=== PATIENT | male | born 1950 | race Caucasian/White ===

== ENCOUNTER 2018-03-31 08:00 | Emergency (ER) | payer MEDICARE ==
[2018-03-31] MEDS ORDERED: Aspirin 81 MG Tab.Chew PO ONE (08:26)
[2018-03-31] MEDS ORDERED: Nitroglycerin 0.4 MG Tab.SL SL ONE (08:27)
[2018-03-31] MEDS ORDERED: Sodium Chloride 0.9% 1,000 ML IV SCH (09:00)
[2018-03-31] MEDS ORDERED: Morphine 2 MG/ML Syringe IVPUSH ONE (09:14)
[2018-03-31] MEDS ORDERED: Clopidogrel 75 MG Tab PO ONE (09:20)
[2018-03-31] MEDS ORDERED: Heparin Sodium/D5W 25,000 UNITS/500 ML BAG IV SCH (09:30)
[2018-03-31] MEDS ORDERED: Nitroglycerin/D5W 25 MG/250 ML BOTTLE IV SCH (09:30)
[2018-03-31] MEDS ORDERED: Heparin Sodium 5,000 UNITS/0.5 ML Syringe IVPUSH ONE (09:31)
[2018-03-31] MEDS: Clopidogrel 75 MG Tab ONE ×2 (09:40→09:56)
--- NOTE | 2018-03-31 17:12 | CR ---
DATE OF SERVICE: 03/31/18 CLINICAL DATA: chest pain AP PORTABLE CHEST: Comparison is made to a prior exam dated 10/08/17. The heart size is normal. There is calcification of the aortic arch. The lungs are clear. No pneumothorax. No pleural effusions. No evidence of acute intrathoracic disease. [id number] [facility]
--- NOTE | 2018-04-01 08:33 | ER ---
HISTORY OF PRESENT ILLNESS: A 68-year-old male who comes in by ambulance with chest pain/discomfort. The patient tells me that he has had problems for 3 or 4 weeks. He did see someone in the clinic here in [place] a couple of weeks ago and was diagnosed with angina. He was given nitroglycerin. He only used it once or twice. The patient states his symptoms have been progressively getting worse and last night, he woke up in the middle of the night with a very tight feeling in his chest that felt like someone was squeezing a vice inside of his chest. He also had some jaw pain and was feeling somewhat dizzy. The patient did not tell anyone about his symptoms. His was not informed until this morning. The patient currently rates his pain at 2/10. Blood pressure initially 198/94. PAST MEDICAL HISTORY: Includes hypertension. The patient is on Lotrel for this and he also was on a muscle relaxer occasionally for back pain. He has no history of coronary artery disease. The patient was a smoker until he was 45 years old when he quit. OBJECTIVE: GENERAL APPEARANCE: The patient is awake and alert. No respiratory distress. VITAL SIGNS: Reveal an initial blood pressure 198/94, pulse is 88, he is afebrile, O2 sats are 98% on room air, and respirations are 16. INITIAL TREATMENT: Four baby aspirins were given orally. The patient also was given one nitroglycerin sublingually. This did temporarily resolve his discomfort. An EKG shows a normal sinus rhythm without any ST elevation or depression. Within a few minutes, the patient's discomfort started to come back. An IV was started by this time, and he was given morphine 2 mg, which again temporarily relieved his chest discomfort. LABS: Include a CBC which is normal. CMP is also unremarkable. Troponin is normal. At this point, a second EKG was obtained showing no changes. Again, normal sinus rhythm. DIAGNOSIS: Unstable angina. TREATMENT PLAN: I did consult with Dr. Ward, pulp grinder feeder at [facility] in [place], who accepted the patient with the additional orders of giving the patient Plavix 600 mg p.o., giving him a heparin drip, which we did at 4000 units followed by a heparin bolus of 4000 units followed by a drip and a nitroglycerin drip as well was started. The patient had no further chest discomfort or pain while in our emergency room. He was transferred to [place] by [facility]. CONDITION UPON DISCHARGE: From our facility is guarded. CRS/MODL /[id number]
== END 2018-03-31 10:20 ==
LOC: LB.ED 08:00
DX: I20.0 Unstable angina (principal); I10 Essential (primary) hypertension
CPT/HCPCS: 36415; 71045; 80053; 84484; 85025; 93005; 96361; 96374; 96375; 99284; 99285; A0425; A0429; A9270; J1644; J2270; J3490; J7030

== ENCOUNTER 2020-09-01 04:08 | Emergency (ER) | payer MEDICARE ==
[2020-09-01] MEDS ORDERED: Pantoprazole 80 MG in Sodium Chloride 0.9% 100 ML IV ONE (05:00)
--- NOTE | 2020-09-01 05:06 | EDM.PDOC ---
ED HPI GENERAL MEDICAL PROBLEM - General Chief Complaint: Gastrointestinal Problem Stated Complaint: GI bleed Time Seen by Provider: 09/01/20 04:50 Source of Information: Reports: Patient History Limitations: Reports: No Limitations - History of Present Illness INITIAL COMMENTS - FREE TEXT/NARRATIVE: 70 year old male with PMH cardiac stents, HTN, on brilinta woke at 0400, vomited bright red blood with BRBPR. He has had 2 additional episodes since. Denies any CP, nausea, abdominal pain, cough, fever, ETOH, or SOB. C/O dizziness, weakness. Patient has been taking 800mg ibuprofen every 6 hours for the past 5 days for left knee pain. Onset: Today Onset Time: 04:00 Severity: Moderate Improves with: Reports: None Worsens with: Reports: None - Related Data Allergies Allergy/AdvReac Type Severity Reaction Status Date / Time No Known Allergies Allergy Verified 05/21/18 09:47 Home Meds: Home Meds methocarbamoL [Methocarbamol] 750 mg PO BEDTIME 03/31/18 [History] Aspirin 81 mg PO DAILY 05/21/18 [History] Metoprolol Succinate [Toprol XL 50mg] 50 mg PO BID 05/21/18 [History] Ticagrelor [Brilinta] 90 mg PO DAILY 05/21/18 [History] atorvaSTATin [Lipitor] 80 mg PO BEDTIME 05/21/18 [History] lisinopriL [Prinivil] 5 mg PO DAILY 05/21/18 [History] Past Medical History HEENT History: Reports: Hard of Hearing Cardiovascular History: Reports: Hypertension Musculoskeletal History: Reports: Other (See Below) Other Musculoskeletal History: muscle pain - takes robaxin - Infectious Disease History Infectious Disease History: Reports: Chicken Pox, Measles, Mumps - Past Surgical History Cardiovascular Surgical History: Reports: Other (See Below) Other Cardiovascular Surgeries/Procedures: Was scheduled for stress test for friday by Dr. Orozco who had dispensed nitro for patient Social & Family History - Family History Family Medical History: No Pertinent Family History Cardiac: Reports: Other (See Below) Other Cardiac Family History: Grandfather that of NC at 62 years of age - Caffeine Use Caffeine Use: Reports: Coffee, Soda Other Caffeine Use: 2 cups day. Occasional pop ED ROS GENERAL - Review of Systems Review Of Systems: See Below Constitutional: Reports: No Symptoms HEENT: Reports: No Symptoms Respiratory: Reports: No Symptoms. Denies: Shortness of Breath, Cough Cardiovascular: Reports: Lightheadedness Endocrine: Reports: No Symptoms GI/Abdominal: Reports: Bloody Stool, Hematemesis, Hematochezia : Reports: No Symptoms Musculoskeletal: Reports: No Symptoms Skin: Reports: No Symptoms Neurological: Reports: No Symptoms Psychiatric: Reports: No Symptoms Hematologic/Lymphatic: Reports: Easy Bleeding Immunologic: Reports: No Symptoms ED EXAM, GI/ABD - Physical Exam Exam: See Below Exam Limited By: No Limitations General Appearance: Alert, WD/WN, Mild Distress Eyes: Bilateral: Normal Appearance Ears: Normal External Exam Nose: Normal Inspection, No Blood Throat/Mouth: Normal Inspection, Normal Lips, Normal Oropharynx, No Airway Compromise Head: Atraumatic Neck: Normal Inspection, Full Range of Motion Respiratory/Chest: No Respiratory Distress, Lungs Clear, Normal Breath Sounds Cardiovascular: Normal Peripheral Pulses, Regular Rate, Rhythm, No Edema, No JVD, No Murmur GI/Abdominal Exam: Normal Bowel Sounds, Soft, Non-Tender Rectal (Males) Exam: Bloody Stool, Heme + Stool Back Exam: Full Range of Motion Extremities: Normal Inspection, Normal Range of Motion, No Pedal Edema, Normal Capillary Refill Neurological: Alert, Oriented, Normal Gait, No Motor/Sensory Deficits Psychiatric: Normal Affect, Normal Mood Skin Exam: Warm, Dry, Intact, Pallor Lymphatic: No Adenopathy Course - Vital Signs Last Recorded V/S: Last Vital Signs Temp 96.7 F L 09/01/20 04:35 Pulse 72 09/01/20 05:56 Resp 18 09/01/20 05:56 BP 145/42 H 09/01/20 05:56 Pulse Ox 99 09/01/20 05:56 - Orders/Labs/Meds Orders: Active Orders 24 hr Category Date Time Status EKG Documentation Completion [RC] ASDIRECTED Care 09/01/20 05:12 Active Nothing Per Oral Diet [DIET] Diet 09/01/20 Breakfast Ordered Labs: Laboratory Tests 09/01/20 09/01/20 09/01/20 Range/Units 05:25 05:25 05:25 WBC 7.8 (4.0-11.0) K/uL RBC 3.58 L (4.50-6.50) M/uL Hgb 11.0 L D (13.0-18.0) g/dL Hct 34.3 L D (40.0-54.0) % MCV 96 (76-96) fL MCH 30.7 (27.0-32.0) pg MCHC 32.1 (31.0-35.0) g/dL RDW 12.4 (11.0-16.0) % Plt Count 158 (150-400) K/uL MPV 11.4 H (6.0-10.0) fL Neut % (Auto) 65.8 (45.0-70.0) % Lymph % (Auto) 22.3 (20.0-40.0) % [place] % (Auto) 6.8 (3.0-10.0) % Eos % (Auto) 4.7 (1.0-5.0) % Baso % (Auto) 0.4 (0.0-0.5) % Neut # (Auto) 5.15 (2.00-7.50) K/uL Lymph # (Auto) 1.74 (1.50-4.00) K/uL [place] # (Auto) 0.53 (0.20-0.80) K/uL Eos # (Auto) 0.37 (0.04-0.40) K/uL Baso # (Auto) 0.03 (0.02-0.10) K/uL PT (9.0-11.5) sec INR (1.0-3.5) Sodium 144 (136-145) mmol/L Potassium 4.6 (3.5-5.1) mmol/L Chloride 111 H (98-107) mmol/L Carbon Dioxide 24.0 (21.0-32.0) mmol/L Anion Gap 13.6 (5.0-15.0) mmol/L BUN 36 H D (8-26) mg/dL Creatinine 1.15 (0.70-1.30) mg/dL Est Cr Clr Drug Dosing 53.94 mL/min Estimated GFR (MDRD) > 60 (>60) MLS/MIN BUN/Creatinine Ratio 31.3 H (6-25) Glucose 168 H D (74-100) mg/dL Calcium 7.4 L (8.5-10.1) mg/dL Total Bilirubin 0.2 D (0.0-1.0) mg/dL AST 29 (15-37) U/L ALT 43 (12-78) U/L Alkaline Phosphatase 64 (46-116) U/L Total Protein 5.4 L (6.4-8.2) g/dL Albumin 2.8 L (3.4-5.0) g/dL Globulin 2.6 (2.2-4.2) g/dL Albumin/Globulin Ratio 1.1 (0.8-2.0) SARS CoV-2 RNA Rapid RUBY Blood Type O NEGATIVE Gel Antibody Screen Negative 09/01/20 09/01/20 Range/Units 05:25 06:10 WBC (4.0-11.0) K/uL RBC (4.50-6.50) M/uL Hgb (13.0-18.0) g/dL Hct (40.0-54.0) % MCV (76-96) fL MCH (27.0-32.0) pg MCHC (31.0-35.0) g/dL RDW (11.0-16.0) % Plt Count (150-400) K/uL MPV (6.0-10.0) fL Neut % (Auto) (45.0-70.0) % Lymph % (Auto) (20.0-40.0) % [place] % (Auto) (3.0-10.0) % Eos % (Auto) (1.0-5.0) % Baso % (Auto) (0.0-0.5) % Neut # (Auto) (2.00-7.50) K/uL Lymph # (Auto) (1.50-4.00) K/uL [place] # (Auto) (0.20-0.80) K/uL Eos # (Auto) (0.04-0.40) K/uL Baso # (Auto) (0.02-0.10) K/uL PT 10.9 (9.0-11.5) sec INR 1.1 (1.0-3.5) Sodium (136-145) mmol/L Potassium (3.5-5.1) mmol/L Chloride (98-107) mmol/L Carbon Dioxide (21.0-32.0) mmol/L Anion Gap (5.0-15.0) mmol/L BUN (8-26) mg/dL Creatinine (0.70-1.30) mg/dL Est Cr Clr Drug Dosing mL/min Estimated GFR (MDRD) (>60) MLS/MIN BUN/Creatinine Ratio (6-25) Glucose (74-100) mg/dL Calcium (8.5-10.1) mg/dL Total Bilirubin (0.0-1.0) mg/dL AST (15-37) U/L ALT (12-78) U/L Alkaline Phosphatase (46-116) U/L Total Protein (6.4-8.2) g/dL Albumin (3.4-5.0) g/dL Globulin (2.2-4.2) g/dL Albumin/Globulin Ratio (0.8-2.0) SARS CoV-2 RNA Rapid RUBY Negative Blood Type Gel Antibody Screen Meds: Medications Discontinued Medications Generic Name Dose Route Start Last Admin Trade Name Freq PRN Reason Stop Dose Admin Pantoprazole Sodium 80 mg/ 100 mls @ 200 mls/hr 09/01/20 05:00 09/01/20 05:11 Sodium Chloride IV 09/01/20 05:29 200 mls/hr .BOLUS ONE Administration Pantoprazole Sodium Confirm 09/01/20 05:11 09/01/20 05:23 Protonix Iv Administered 09/01/20 05:12 Not Given Dose 80 mg .ROUTE .STK-MED ONE Departure - Departure Time of Disposition: 07:25 Disposition: DC/Tfer to Acute Hospital 02 Condition: Good Clinical Impression: GI (gastrointestinal bleed) Qualifiers: GI bleed type/associated pathology: unspecified gastrointestinal hemorrhage type Qualified Code(s): K92.2 - Gastrointestinal hemorrhage, unspecified - Discharge Information *PRESCRIPTION DRUG MONITORING PROGRAM REVIEWED*: Not Applicable *COPY OF PRESCRIPTION DRUG MONITORING REPORT IN PATIENT RODOLFO: Not Applicable Instructions: Gastrointestinal Bleeding, [id number] Referrals: PCP,None [Primary Care Provider] - Forms: ED Department Discharge Sepsis Event Note (ED) - Focused Exam Vital Signs: Vital Signs Temp Pulse Resp BP Pulse Ox 09/01/20 05:56 72 18 145/42 H 99 09/01/20 05:22 65 143/69 H 09/01/20 05:15 65 110/27 L 09/01/20 05:00 66 98/39 L 09/01/20 04:35 96.7 F L 66 18 158/61 H 100 - My Orders Last 24 Hours: My Active Orders 09/01/20 05:12 EKG Documentation Completion [RC] ASDIRECTED 09/01/20 Breakfast Nothing Per Oral Diet [DIET] - Assessment/Plan Last 24 Hours: My Active Orders 09/01/20 05:12 EKG Documentation Completion [RC] ASDIRECTED 09/01/20 Breakfast Nothing Per Oral Diet [DIET] Plan: Called [facility], left a detailed message, waiting for call back. [id number] spoke with [facility], they are not able to take patient due to no GI coverage on the weekend. Called [facility], hospitalist paged, will call back, labs pending. COVID negative, patient will go to [facility]. Dr. Lee will accept the patient. Waiting for AMB/Flight crew, Denies any pain or nausea at this time/.
[2020-09-01] MEDS ORDERED: Pantoprazole 40 MG Vial ONE (05:11)
== END 2020-09-01 07:37 ==
LOC: LB.ED 04:08
DX: K92.2 Gastrointestinal hemorrhage, unspecified (principal); I10 Essential (primary) hypertension; Z79.82 Long term (current) use of aspirin; Z79.899 Other long term (current) drug therapy; Z20.828 Contact with and (suspected) exposure to other viral communicable diseases; Z95.5 Presence of coronary angioplasty implant and graft
CPT/HCPCS: 36415; 80053; 85025; 85610; 86850; 86900; 86901; 93005; 96365; 99285; 99285-25; C9113; U0002